=== PATIENT | male | born 1965 | race Caucasian/White ===

== ENCOUNTER → 2016-07-28 | Outpatient (CLI) | payer OTHER ==
[~2016-07-28] MED LIST: ASPIR 8181 MG PO; CATAPRES 0.1MG0.1 MG PO; CELEXA20 MG PO; GABAPENTIN400 MG PO; LASIX20 MG PO; LISINOPRIL20 MG PO; OMEPRAZOLE20 MG PO; PAROXETINE HCL10 MG PO; PERCOCET 10-321 EACH PO; PHENERGAN 25 MG25 M1 PO; SINGULAIR10 MG PO; SUBOXONE 8 MG-1 EACH SL; XARELTO10 MG PO
[2016-07-28 15:41] LABS: BUN/CREATININE RATIO 20 (0-10)
== END ==
LOC: LAB 14:31
PROVIDERS: Orthopaedic Surgery
DX: Z01.812 Encounter for preprocedural laboratory examination (principal)
CPT/HCPCS: 36415; 80048; 86850; 86900; 86901

== ENCOUNTER 2016-07-29 06:30 | Day surgery (SDC) | payer OTHER ==
[~2016-07-29] VITALS: Ht 185.4 cm; Wt 107.0 kg
[~2016-07-29 06:30] MED LIST changes: -PERCOCET 10-321 EACH PO; -XARELTO10 MG PO
[2016-07-30 05:40] LABS: HEMOGLOBIN 12.6 gm/dl (14.0-17.5); RED BLOOD COUNT 4.14 M/UL (4.20-5.50); WHITE BLOOD COUNT 9.7 K/UL (4.5-11.0)
[2016-07-30 05:57] LABS: BUN/CREATININE RATIO 19 (0-10)
[2016-07-31 04:46] LABS: HEMOGLOBIN 12.1 gm/dl (14.0-17.5); RED BLOOD COUNT 4.03 M/UL (4.20-5.50); WHITE BLOOD COUNT 11.4 K/UL (4.5-11.0)
[2016-07-31 05:05] LABS: BUN/CREATININE RATIO 13 (0-10)
[2016-07-31] MEDS ORDERED: XARELTO10 MG PO (14:03)
[2016-07-31] MEDS ORDERED: PERCOCET 10-321 EACH PO (14:03)
== END 2016-07-31 15:22 | disposition home or self-care (01) ==
LOC: UNDOADMIN 06:30 → M/S 06:30 → ZOBSOF 06:30 → OR 06:30 → EDSTATUS 08:15 → M/S 14:29 → ZOBSOF 14:29 → OR 07-31 15:22 → M/S 07-31 15:22
PROVIDERS: Orthopaedic Surgery
PROC: 0SRC0L9 Replacement of Right Knee Joint with Medial Unicondylar Synthetic Substitute, Cemented, Open Approach (ICD-10-PCS; principal; 2016-07-29 08:15)
PROC: 3E0T3CZ (ICD-10-PCS; principal; 2016-07-29 08:15)
DX: M17.11 Unilateral primary osteoarthritis, right knee (principal); J44.9 Chronic obstructive pulmonary disease, unspecified; R09.02 Hypoxemia; E11.9 Type 2 diabetes mellitus without complications; I10 Essential (primary) hypertension; M94.261 Chondromalacia, right knee; E78.5 Hyperlipidemia, unspecified; G89.29 Other chronic pain; M54.9 Dorsalgia, unspecified; M79.7 Fibromyalgia; F32.9 Major depressive disorder, single episode, unspecified; F41.9 Anxiety disorder, unspecified; Z86.73 Personal history of transient ischemic attack (TIA), and cerebral infarction without residual deficits; Z79.82 Long term (current) use of aspirin; Z99.81 Dependence on supplemental oxygen; Z79.899 Other long term (current) drug therapy; Z88.6 Allergy status to analgesic agent; Z90.49 Acquired absence of other specified parts of digestive tract; Z98.890 Other specified postprocedural states; Z83.3 Family history of diabetes mellitus; Z82.49 Family history of ischemic heart disease and other diseases of the circulatory system; Z80.1 Family history of malignant neoplasm of trachea, bronchus and lung
CPT/HCPCS: 36415; 73560; 80048; 82962; 85025; 97110; 97116; 97530; 97535; C1713; C1776; J0595; J0690; J1885; J2250; J2270; J2405; J2550; J2795; J3010; J3370; J7030; J7120

== ENCOUNTER → 2020-11-12 | Outpatient (CLI) | payer OTHER ==
[~2020-11-12] MED LIST changes: +BUMETANIDE0.5 MG PO; +FORTAMET1000 MG PO; +HYDROCHLOROTHIA25 MG PO; +HYDROXYZINE HCL25 MG PO; +NEURONTIN300 MG PO; +PERCOCET 10-321 EACH PO; +XARELTO10 MG PO
== END ==
LOC: CT 10-11 10:00
DX: D47.2 Monoclonal gammopathy (principal); R55 Syncope and collapse; R80.9 Proteinuria, unspecified; K63.89 Other specified diseases of intestine; K59.00 Constipation, unspecified; E04.1 Nontoxic single thyroid nodule
CPT/HCPCS: 36415; 71260; 82565; Q9967

== ENCOUNTER → 2020-12-17 | Day surgery (SDC) | payer OTHER | END | disposition home or self-care (01) | LOC: OR 12-10 07:30 | DX: K59.00 Constipation, unspecified (principal); E11.9 Type 2 diabetes mellitus without complications; G89.4 Chronic pain syndrome; K21.9 Gastro-esophageal reflux disease without esophagitis; I10 Essential (primary) hypertension; G47.33 Obstructive sleep apnea (adult) (pediatric); F41.9 Anxiety disorder, unspecified; M13.0 Polyarthritis, unspecified; J44.9 Chronic obstructive pulmonary disease, unspecified; E78.5 Hyperlipidemia, unspecified; G25.81 Restless legs syndrome; Z99.81 Dependence on supplemental oxygen; Z86.73 Personal history of transient ischemic attack (TIA), and cerebral infarction without residual deficits; Z88.6 Allergy status to analgesic agent; Z88.8 Allergy status to other drugs, medicaments and biological substances; Z79.82 Long term (current) use of aspirin; Z79.84 Long term (current) use of oral hypoglycemic drugs; Z79.899 Other long term (current) drug therapy; Z20.822 Contact with and (suspected) exposure to COVID-19 | CPT/HCPCS: 82962; J2001; J2704; J7120; U0002 ==